=== PATIENT | male | born 1950 | race Caucasian/White ===

== ENCOUNTER → 2016-10-12 | Day surgery (SDC) | payer OTHER ==
[~2016-10-12] MED LIST: ADVAIR 2501 DISK W/D PO; ALBUTEROL17 GM INH; AMLODIPINE-BEN1 EAC4 PO; ASPIRIN PO; COMBIVENT MININEB INH; GLUCOPHAGE XR500 MG PO; HYDROCODON-ACE1 EAC7 PO; IBUPROFEN100 MG PO; LIORESAL10 MG PO; LISINOPRIL20 MG PO; METFORMIN HCL1000 M1 PO; PRAVASTATIN SOD40 MG PO; PROTONIX PO; SPIRIVA18 MCG INH; TOPIRAMATE100 MG PO; TOPROL XL PO; VOLTAREN75 MG PO; ZOCOR PO
--- NOTE | ~2016-10-12 | OR ---
Unit #: [id number] #: [id number] Patient: BELEN CARROLL [id number] [address] [place], [place] [address] [id number] O MR#: [id number] NAME: BELEN CARROLL. ROOM: Date of Procedure: 10/12/2016 Admission Date: 10/12/2016 Surgeon: Massimo Melgar M.D. : 1950 Attending Physician: Boris Melgar Primary Care Physician: Adarsh Myers M.D. [facility]ENTER OPERATIVE NOTE PROCEDURE PERFORMED Cervical epidural steroid injection under x-ray guided needle placement with provider administered conscious sedation. PREOPERATIVE DIAGNOSES 1. Acute cervical radiculitis. 2. Spinal stenosis, cervical spine. 3. Herniated disk, C6-C7. 4. Multiple-level herniated disc in addition to C6-C7. 5. Degenerative joint disease, cervical spine. 6. Degenerative disk disease, cervical spine. INDICATIONS FOR PROCEDURE The patient presents today with seven months long history of cervical radiculitis, which has advanced in a crescendo pattern and failed to respond to conservative measures. He is in possession of MRI, which shows diffuse multilevel disk disease; however, most notably worse at C6-C7 level, and at that level herniation is compatible with his symptoms. After discussing risks and benefits of proceeding today with cervical approach epidural steroid injection as well as follow up here in 12 days on Monday, 10/24, the patient agreed this would be the appropriate course of action. DESCRIPTION OF PROCEDURE He was then taken to the operating room, where he was prepped and draped in a sterile manner. Standard monitors were applied. He was sedated with 2 mg of IV Versed and the cervical epidural space was accessed at C6-C7 level using loss of resistance technique and x-ray guidance. Needle placement was confirmed with injection of 2 mL of Omnipaque. There was good superior and inferior flow at the C6-C7 level, although the flow was primarily superior. Following successful needle placement confirmation, the patient received an injectate containing 2 mL normal saline, 2 mL of 0.25% bupivacaine, and 80 mg of methylprednisolone. He tolerated this procedure well. He was discharged home with followup instructions, which include return dates as described above. Total x-ray time for today's procedure was 5 seconds. Dictated by... Deion Pacheco/amy Unit #: [id number] #: [id number] Patient: BELEN CARROLL TD: 10/12/2016 10:57 JOB #: [id number] [facility] OPERATIVE NOTE Page 1 of 1 X Boris Melgar MD PROCEDURE OPERATIVE NOTE
== END | disposition home or self-care (01) ==
LOC: CCSC 07:40
DX: M50.123 Cervical disc disorder at C6-C7 level with radiculopathy (principal); M48.02 Spinal stenosis, cervical region; M47.22 Other spondylosis with radiculopathy, cervical region; I25.10 Atherosclerotic heart disease of native coronary artery without angina pectoris; E11.9 Type 2 diabetes mellitus without complications; I11.0 Hypertensive heart disease with heart failure; I50.9 Heart failure, unspecified; J44.9 Chronic obstructive pulmonary disease, unspecified; I25.2 Old myocardial infarction; Z87.01 Personal history of pneumonia (recurrent); Z79.84 Long term (current) use of oral hypoglycemic drugs; Z79.891 Long term (current) use of opiate analgesic; Z79.51 Long term (current) use of inhaled steroids; Z79.1 Long term (current) use of non-steroidal anti-inflammatories (NSAID); Z79.899 Other long term (current) drug therapy; Z98.890 Other specified postprocedural states
CPT/HCPCS: 82947; J1040; J2250

== ENCOUNTER → 2016-10-31 | Day surgery (SDC) | payer OTHER ==
--- NOTE | ~2016-10-31 | OR ---
Unit #: [id number] #: [id number] Patient: BELEN CARROLL [id number] [address] [place], [place] [address] [id number] O MR#: [id number] NAME: BELEN CARROLL ROOM: Date of Procedure: 10/31/2016 Admission Date: 10/31/2016 Surgeon: Massimo Melgar M.D. : 1950 Attending Physician: Boris Melgar Primary Care Physician: Adarsh Myers M.D. [facility]ENTER OPERATIVE NOTE PROCEDURE PERFORMED Cervical epidural steroid injection under x-ray guided needle placement. PREOPERATIVE DIAGNOSES 1. Acute cervical radiculitis. 2. Spinal stenosis, cervical spine. 3. Herniated disk, C5-C6. 4. Herniated disk, C6-C7. 5. Degenerative joint disease, cervical spine. 6. Degenerative disk disease, cervical spine. INDICATIONS FOR PROCEDURE The patient presents today status post one previous cervical approach epidural steroid injection for an acute radiculitis, which had failed to respond to conservative therapy. He states he got excellent results for almost complete relief of his symptoms. However, he does occasionally have intermittent pain, which is very severe and limiting in his activities, therefore, he requests a second epidural steroid injection. After discussing risks and benefits of proceeding today with second cervical approach epidural steroid injection with offer to return as early as 02/01/2017, the patient agreed this would be the appropriate course of action. DESCRIPTION OF PROCEDURE He was then taken to the operating room, where he was prepped and draped in a sterile manner. Standard monitors were applied. He refused all forms of sedation. The cervical epidural space was accessed at the C6-C7 level using loss of resistance technique and x-ray guidance. Needle placement was confirmed with injection of 2 mL of Omnipaque. There was good superior and inferior flow at the C6-C7 placed needle. Following successful needle placement confirmation, the patient received an injectate containing 4 mL normal saline and 80 mg of methylprednisolone. He tolerated this procedure well. He was discharged home with followup instructions, which include return dates as described above. Dictated by... Deion Pacheco/amy TD: 10/31/2016 23:09 Unit #: [id number] #: [id number] Patient: BELEN CARROLL JOB #: [id number] [facility] OPERATIVE NOTE Page 1 of 1 X Boris Melgar MD PROCEDURE OPERATIVE NOTE
== END | disposition home or self-care (01) ==
LOC: CCSC 12:57
DX: M50.122 Cervical disc disorder at C5-C6 level with radiculopathy (principal); M50.123 Cervical disc disorder at C6-C7 level with radiculopathy; M48.02 Spinal stenosis, cervical region; M47.22 Other spondylosis with radiculopathy, cervical region; J44.9 Chronic obstructive pulmonary disease, unspecified; I50.9 Heart failure, unspecified; I25.2 Old myocardial infarction; Z87.01 Personal history of pneumonia (recurrent); Z79.82 Long term (current) use of aspirin; Z79.51 Long term (current) use of inhaled steroids; Z79.899 Other long term (current) drug therapy; Z79.84 Long term (current) use of oral hypoglycemic drugs; Z98.61 Coronary angioplasty status; Z98.890 Other specified postprocedural states
CPT/HCPCS: 82947; J1040; J2250

== ENCOUNTER → 2017-02-01 | Day surgery (SDC) | payer OTHER ==
--- NOTE | ~2017-02-01 | OR ---
Unit #: [id number] #: [id number] Patient: BELEN CARROLL [id number] [address] [place], [place] [address] [id number] O MR#: [id number] NAME: BELEN CARROLL. ROOM: Date of Procedure: 02/01/2017 Admission Date: 02/01/2017 Surgeon: Massimo Melgar M.D. : 1950 Attending Physician: Massimo Melgar M.D. Primary Care Physician: Adarsh Myers M.D. [facility] CENTER OPERATIVE NOTE PROCEDURE PERFORMED Cervical epidural steroid injection under x-ray guided needle placement with provider administered conscious sedation. PREOPERATIVE DIAGNOSES 1. Acute cervical radiculitis. 2. Spinal stenosis, cervical spine. 3. Herniated disk, C6-C7. 4. Herniated disk, C5-C6. 5. Degenerative joint disease, cervical spine. 6. Degenerative disk disease, cervical spine. INDICATIONS FOR PROCEDURE The patient presents today with longstanding history of chronic cervical radicular pain secondary to his underlying degenerative processes. He is generally fairly well managed medically with ongoing medical management and self-directed physical activity. He is on occasion experienced exacerbations, which to date have only responded to epidural steroid injections. His usual amount of relief from the pain is approximately 80% to 100% for 8 to 10 weeks. He does however seem to have a recurrent and/or continuing numbness, which we have yet to successfully treat. The patient presents today with complaints compatible with a recurrent exacerbation, which has broken through his usual ongoing conservative measures. This exacerbation is consistent with past exacerbations as well as consistent with his x-ray studies. After discussing risks and benefits of proceeding today with a C6-C7 epidural steroid injection, the patient agreed this would be the appropriate course of action. DESCRIPTION OF PROCEDURE He was then taken to the operating room, where he was prepped and draped in a sterile manner. Standard monitors were applied. He was sedated with 2 mg of IV Versed and cervical epidural space accessed at the C6-C7 level using loss of resistance technique and x-ray guidance. Needle placement was confirmed with injection of 2 mL of Omnipaque. There was good superior and inferior flow at the C6-C7 needle placement. Following successful needle placement at the C6-C7 level, the patient received an injectate containing 4 mL normal saline and 80 mg of methylprednisolone. He tolerated this procedure well. He was discharged home with followup instructions, which include offer to return this clinic as early as 05/03/2017 if we could be of further service. Dictated by... Unit #: [id number] #: [id number] Patient: BELEN CARROLL Deion Pacheco/amy TD: 02/01/2017 11:27 JOB #: [id number] CC: Adarsh Myers M.D. [facility] OPERATIVE NOTE Page 1 of 1 X Boris Melgar MD X PROCEDURE OPERATIVE NOTE
== END | disposition home or self-care (01) ==
LOC: CCSC 08:49
DX: G89.29 Other chronic pain (principal); M50.122 Cervical disc disorder at C5-C6 level with radiculopathy; M48.02 Spinal stenosis, cervical region; M47.22 Other spondylosis with radiculopathy, cervical region; I50.9 Heart failure, unspecified; I25.2 Old myocardial infarction; J44.9 Chronic obstructive pulmonary disease, unspecified; Z87.01 Personal history of pneumonia (recurrent); Z79.51 Long term (current) use of inhaled steroids; Z79.82 Long term (current) use of aspirin; Z79.84 Long term (current) use of oral hypoglycemic drugs; Z79.899 Other long term (current) drug therapy; Z98.61 Coronary angioplasty status; Z98.890 Other specified postprocedural states
CPT/HCPCS: 82947; J1040; J2250